=== PATIENT | female | born 1985 | race Caucasian/White ===

== ENCOUNTER 2017-10-03 08:00 | Inpatient (IN) | payer OTHER ==
[2017-10-03] MEDS ORDERED: LIDOCAINE 1% 2 ML INJ ONE (09:52)
[2017-10-03] MEDS ORDERED: ceFAZolin 2 GM/DEXTROSE 100 ML IV ONE (14:14)
[2017-10-03] MEDS ORDERED: LR 500 ML IV ONE (14:14)
--- NOTE | 2017-10-03 14:14 | PDGENHP ---
History and Physical - Chief Complaint PROM, H/o prior section - History of Present Illness 32 yo at 39w0d today by BHAVANI of 10/10/17 - presented to triage this AM with N/V, new mucousy blood-tinged discharge and diarrhea, all new this AM. On admission no concern about SROM, but did have her water break during her triage evaluation. Amnisure positive. H/o prior section, planned repeat was scheduled for this coming Friday with LJ. H/o Rh neg and anxiety/OCD. GBS was negative. History Information - Allergies/Home Medication List Allergies/Adverse Reactions: poison rema extract Allergy (Verified 01/19/15 18:35) venom-honey bee [bee venom (honey bee)] Allergy (Verified 01/19/15 18:35) Home Medications: Folic Acid 1 tab PO 01/19/15 [Last Taken 01/19/15] Vit27&Calcium/Iron/FA [] 1 tab PO DAILY 01/19/15 [Last Taken ] I have personally reviewed and updated: family history, medical history, social history, surgical history Past Medical History: Anxiety, OCD - Surgical History Additional surgical history: H/o one prior - Social History Smoking Status: Never smoked Review of Systems Review of Systems: ROS: 10pt was reviewed & negative except for what was stated in HPI & below Physical Exam Physical Exam: Constitutional: no apparent distress Lab Data & Imaging Review Membrane Rupture POSITIVE (NEGATIVE) H 10/03/17 13:46 Imaging Review: Reviewed FHR Tracing: Baseline 135bpm Moderate variability Accels present Rare decels concerning for late decelerations, with long periods of very reassuring tracing between Assessment & Plan Assessment: 32 yo at 39w0d here with PROM, h/o section, desires repeat. Will proceed to OR. Weight-based Ancef. Routine preop orders otherwise. SAIMA
[2017-10-03] MEDS ORDERED: CITRIC ACID/SODIUM CITRATE 30 ML UDCUP PO ONE (14:19)
[2017-10-03] MEDS ORDERED: ceFAZolin 2 GM/SWFI 2 GM/20 ML SYR IVP ONE (14:30)
[2017-10-03] MEDS ORDERED: LR 1,000 ML IV SCH (14:30)
[2017-10-03] MEDS ORDERED: LIDOCAINE 1% 300 MG/30 ML SDV ONE (14:48)
[2017-10-03] MEDS ORDERED: MISOPROSTOL 200 MCG TAB ONE (14:50)
[2017-10-03] MEDS ORDERED: OXYTOCIN 10 UNIT/ML VIAL ONE (14:50)
[2017-10-03] MEDS ORDERED: AMMONIA AROMATIC 1 EACH AMP IH ONE (14:50)
[2017-10-03] MEDS ORDERED: TERBUTALINE SULFATE 1 MG/ML VIAL ONE (14:50)
[2017-10-03] MEDS ORDERED: morphINE PF 5 MG/10 ML INJ ONE (14:53)
[2017-10-03] MEDS ORDERED: fentaNYL 100 MCG/2 ML INJ ONE (14:53)
[2017-10-03] MEDS ORDERED: DEXAMETHASONE 4 MG/ML VIAL ONE ×2 (15:33→15:46)
[2017-10-03] MEDS ORDERED: OXYTOCIN 100 UNITS/10 ML VIAL ONE (15:33)
[2017-10-03] MEDS ORDERED: ONDANSETRON 4 MG/2 ML VIAL ONE ×2 (15:46)
[2017-10-03] MEDS ORDERED: PHENYLEPHRINE HCL 100 MCG/ML SYR ONE (15:46)
--- NOTE | 2017-10-03 16:36 | POSTOPPROG ---
Post Op Note Date of Operation: 10/03/17 Surgeon: Cristobal Crum Management Department Chair: Gudelia Humphrey RN Anesthesiologist: Richard Dorantes MD Anesthesia: Spinal Pre-op Diagnosis: PROM, H/o prior Post-op Diagnosis: Same Procedure: Repeat low transverse section, unscheduled Findings: Little to no scar tissue at all, Normal uterus, normal bilat tubes ovaries Inf/Abcess present in the surg proc area at time of surgery?: No EBL: 700cc Total fluids administered: 2200cc Complications: None Specimen(s): Cord blood gasses sent, placenta not sent to pathology.
[2017-10-03] MEDS ORDERED: ACETAMINOPHEN 325 MG TAB PO PRN (16:42)
[2017-10-03] MEDS ORDERED: PROMETHAZINE HCL 25 MG/ML INJ IVP PRN (16:42)
[2017-10-03] MEDS ORDERED: SIMETHICONE 80 MG TAB CHEW PO PRN (16:42)
--- NOTE | 2017-10-03 16:42 | SUROPNOTE ---
ESME Operative Report - Surgery Date of Operation: 10/03/17 Surgeon: Cristobal Crum Senior Insight Manager: Gudelia Humphrey RN Anesthesiologist: Richard Dorantes MD Anesthesia: Spinal Pre-op Diagnosis: PROM, H/o prior Post-op Diagnosis: Same Procedure: Repeat low transverse section, unscheduled Findings: Little to no scar tissue at all, Normal uterus, normal bilat tubes ovaries Inf/Abcess present in the surg proc area at time of surgery?: No EBL: 700cc Total fluids administered: 2200cc Complications: None Specimen(s): Cord blood gasses sent, placenta not sent to pathology Technique: The patient was taken to the OR where spinal was placed and anesthesia found to be adequate. The patient was then positioned supine with a leftward tilt and a time-out was performed. She was given weight-based antibiotics prior to skin incision. The abdomen was prepped and draped in normal sterile fashion. A Pfannenstiel skin incision was made with the scalpel and carried down to the fascia. Her prior transverse scar was excised prior to that dissection. The fascia was incised in the midline and the incision extended bilaterally sharply with scissors. The fascia was dissected off of the underlying rectus muscles superiorly and inferiorly also sharply using scissors. The rectus were in the midline and the peritoneum identified and entered bluntly without issue. Minimal adhesions encountered as described in findings. The peritoneal incision was extended and the bladder blade was then placed. The vesicouterine junction was identified and a bladder flap not created. A transverse incision was made with the scalpel in the lower uterine segment and extended with cephalad and caudad traction on the incision edges. The head was encountered and easily elevated out of the pelvis and delivered atraumatically, followed by the shoulders and body. The nose and mouth were bulb suctioned. We did wait for 60 seconds before clamping and cutting the cord and then the infant was handed to pediatric staff. Cord blood gases were sent and the placenta was not sent to pathology. The uterus was then exteriorized and carefully wiped of all debris. The uterus was closed in two layers - the first layer was running with 180 0-vloc and the second a vertical imbricating layer using 0-vicryl. The gutters were cleared of all clots. The uterine incision was re-inspected and found to be hemostatic after placement of additional figure of eight sutures of 3-0 vicryl. The uterus was then returned to the abdomen. The fascia was elevated and the rectus muscles and subcutaneous tissues were found to be hemostatic. The fascia was closed with a running 0-Vicryl - single suture. The subcutaneous tissues were irrigated and hemostasis obtained. The subcutaneous space was closed with interrupted sutures of 2-0 vicryl. The skin was closed with 4-0 vloc undyed and then covered with Medipore dressing. The patient tolerated the procedure and was taken to recovery in stable condition. Lap, needle, sponge, and instrument count were announced as correct times two. I was present and scrubbed for the entire case.
--- NOTE | 2017-10-03 17:03 | PDMN ---
Medical Necessity Medical necessity: C/M review: Patient meets INPT criteria under MCG S-350 delivery: viable male .
[2017-10-03] MEDS ORDERED: PHENYLEPHRINE HCL 100 MCG/ML SYR IVP PRN (18:15)
[2017-10-03] MEDS ORDERED: NALOXONE HCL 0.4 MG/ML INJ IVP PRN (18:15)
--- NOTE | 2017-10-03 18:19 | POSTANESTH ---
Post Anesthetic Evaluation Cardiovascular Status: Normal, Stable, Similar to Pre-Op Cond Respiratory Status: Normal, Stable, Similar to Pre-op Cond. Level of Consciousness/Mental Status: Can Participate in Eval, Alert and Oriented Pain Control: Adequate, Prn Tx Ordered Nausea/Vomiting Control: Adequate, Prn Tx Ordered Complications Possibly Related to Anesthesia: None Noted
[2017-10-03 18:20] LABS: PLATELET COUNT 214 10^3/uL (150-400)
--- NOTE | 2017-10-03 18:22 | PREANESOB ---
Obstetric Pre-Anesthesia Info - General Info Proposed Procedure: Repeat C Section. : 2 Para: 1 BHAVANI: 10/08/17 Gestational Age: 39 week(s) and 2 day(s) - Info Status: Full Term Monitors: External FHR Baseline (bpm): 130 FHR Pattern: Reassuring - Labor Status Section History: Repeat Indications for Current Section: Elective/Repeat (SROM.) Labor Epidural: No Anesthesia ROS: Prior epidural for C Section. Allergies/Adverse Reactions: Allergy/AdvReac Type Severity Reaction Status Date / Time poison rema extract Allergy Verified 01/19/15 18:35 venom-honey bee Allergy Verified 01/19/15 18:35 [bee venom (honey bee)] Home Medications: Medication Instructions Recorded Folic Acid 1 tab PO 01/19/15 Vit27&Calcium/Iron/FA 1 tab PO DAILY 01/19/15 [] Hydrocodone/APAP 5/325 [[place] 1 - 2 tab PO Q4 PRN #30 tab 01/24/15 5/325 (*)] Ibuprofen [Motrin (*)] 600 mg PO Q6 PRN #30 tab 01/24/15 Iron Polysacch/Iron Heme Polyp 28 mg PO DAILY #30 tab 01/24/15 [Bifera] Visit Medications: Generic Name Dose Route Start Last Admin Trade Name Freq PRN Reason Stop Dose Admin Acetaminophen 325 - 650 mg 10/03/17 16:42 Tylenol PO 04/01/18 16:41 Q3HRS PRN Pain, Mild Diphenhydramine HCl 25 - 50 mg 10/03/17 18:15 Benadryl Injection IVP 10/04/17 18:14 Q6HRS PRN Itching Docusate Sodium 100 mg 10/03/17 21:00 Colace PO 04/01/18 20:59 BID TUNG Lactated Ringer's 1,000 mls @ 125 mls/hr 10/03/17 14:30 Lr IV 10/04/17 14:29 CONT TUNG Ibuprofen 600 mg 10/04/17 18:00 Motrin PO 04/02/18 17:59 Q6HRS PRN Inflammation Ketorolac Tromethamine 30 mg 10/03/17 18:00 Toradol IVP 10/04/17 12:01 Q6HRS TUNG Naloxone HCl 0.4 mg 10/03/17 18:15 Narcan IVP 10/04/17 18:17 PRN PRN respiratory depression Ondansetron HCl 4 mg 10/03/17 18:15 Zofran IVP 10/04/17 18:14 Q4HRS PRN Nausea/Vomiting, Can't Take PO Oxycodone/Acetaminophen 1 - 2 tab 10/03/17 16:42 Percocet 5/325 PO 10/13/17 16:41 Q4HRS PRN Pain, Severe Able to Take PO Phenylephrine HCl 100 mcg 10/03/17 18:15 Neosynephrine IVP 10/03/17 19:16 Q1M PRN Hypotension Promethazine HCl 25 mg 10/03/17 16:42 Phenergan IVP 04/01/18 16:41 Q6HRS PRN Nausea/Vomiting, Use 1st Simethicone 80 mg 10/03/17 16:42 Mylicon PO 04/01/18 16:41 .TIDMEALS AND HS PRN Gas Discontinued Medications Generic Name Dose Route Start Last Admin Trade Name Freq PRN Reason Stop Dose Admin Ammonia (Aromatic Spirit) Confirm 10/03/17 14:50 Ammonia Aromatic Administered 10/03/17 14:51 Dose 1 each IH .STK-MED ONE Citric Acid/Sodium Citrate 30 ml 10/03/17 14:19 10/03/17 14:47 Bicitra PO 10/03/17 14:20 30 ml ONCALL ONE Administration Dexamethasone Confirm 10/03/17 15:33 Decadron Injection Administered 10/03/17 15:34 Dose 4 mg .ROUTE .STK-MED ONE Dexamethasone Confirm 10/03/17 15:46 Decadron Injection Administered 10/03/17 15:47 Dose 4 mg .ROUTE .STK-MED ONE Fentanyl Confirm 10/03/17 14:53 Sublimaze Administered 10/03/17 14:54 Dose 100 mcg .ROUTE .STK-MED ONE Lactated Ringer's 500 mls @ 0 mls/hr 10/03/17 14:14 Lr IV 10/03/17 14:15 ONCE ONE As Directed Cefazolin Sodium 2 gm in 20 mls @ 200 mls/hr 10/03/17 14:30 10/03/17 14:30 Cefazolin Syringe IVP 10/03/17 14:35 20 mls ONCALL ONE Administration Lidocaine HCl Confirm 10/03/17 09:52 Lidocaine Hcl 1% Administered 10/03/17 09:53 Dose 2 ml .ROUTE .STK-MED ONE Lidocaine HCl Confirm 10/03/17 14:48 Lidocaine Hcl 1% Administered 10/03/17 14:49 Dose 300 mg .ROUTE .STK-MED ONE Misoprostol Confirm 10/03/17 14:50 Cytotec Administered 10/03/17 14:51 Dose 1,000 mcg .ROUTE .STK-MED ONE Morphine Sulfate Confirm 10/03/17 14:53 Morphine Pf 5 Mg/10 Ml Administered 10/03/17 14:54 Dose 5 mg .ROUTE .STK-MED ONE Ondansetron HCl Confirm 10/03/17 15:46 Zofran Administered 10/03/17 15:47 Dose 4 mg .ROUTE .STK-MED ONE Ondansetron HCl Confirm 10/03/17 15:46 Zofran Administered 10/03/17 15:47 Dose 4 mg .ROUTE .STK-MED ONE Oxytocin Confirm 10/03/17 14:50 Pitocin Administered 10/03/17 14:51 Dose 40 unit .ROUTE .STK-MED ONE Oxytocin Confirm 10/03/17 15:33 Pitocin Administered 10/03/17 15:34 Dose 100 units .ROUTE .STK-MED ONE Phenylephrine HCl Confirm 10/03/17 15:46 Neosynephrine Administered 10/03/17 15:47 Dose 1,000 mcg .ROUTE .STK-MED ONE Terbutaline Sulfate Confirm 10/03/17 14:50 Brethine Administered 10/03/17 14:51 Dose 1 mg .ROUTE .STK-MED ONE - Anesthesia History Response to Local Anesthetics: Normal Anesthesia & Operative History: No Prior Problems Family Anesthesia History: Negative - Social History Substance Use/Abuse: Denies - Vital Signs Latest Vital Signs (Nursing): Temp Pulse Resp BP Pulse Ox 36.8 C 78 18 119/77 99 10/03/17 16:44 10/03/17 16:44 10/03/17 16:44 10/03/17 16:44 10/03/17 16:40 Blood Pressure: 130/83 Heart Rate: 81 Height/Weight (Nursing): Height 167.64 cm Weight 105.233 kg - Focused Exam Neck exam: FROM Mallampati Score: Class 2 Mouth exam: normal dental/mouth exam Pulmonary: no respiratory distress Cardiovascular: regular rate and rhythym Labs: Patient ABO/Rh A NEGATIVE 10/03/17 10:30 - Plan Anesthetic Plan: SAB Consent Signed and on Chart: Yes Patient/Guardian Understands and Agrees to Plan: Yes Urgent/Emergent Case: Saadia hdz completed preop but documented later for safe timely pt care
[2017-10-03] MEDS: ONDANSETRON 4 MG/2 ML VIAL IVP PRN (19:43)
[2017-10-03] MEDS: KETOROLAC 30 MG/1 ML SDV IVP SCH (19:43)
[2017-10-03] MEDS: DOCUSATE SODIUM 100 MG CAP PO SCH (19:44)
[2017-10-04] MEDS: KETOROLAC 30 MG/1 ML SDV IVP SCH ×3 (00:25→11:32)
[2017-10-04] MEDS: ONDANSETRON 4 MG/2 ML VIAL IVP PRN (00:25)
--- NOTE | 2017-10-04 09:21 | OBPP ---
Progress Note Assessment/Plan: Assessment:32 POD#1 s/p repeat C/S, doing well. Good urine output. Plan: Encourage ambulation, dc urinary catheter, obtain Hct off IV with removal later today, as pt declining any further attempts now. 10/04/17 09:34 Subjective/ Course: 10/04/17 09:22 Pt doing well, though fatigued with minimal sleep. Frustrated as unable to get hct drawn successfully despite numerous attempts. going well. [place] reg diet this morning without nausea. Urinary catheter still in place. Objective: urine output 1250 in 12 hours overnight 10/03/17 17:51 Patient ABO/Rh A NEGATIVE 10/03/17 17:51 Temp Pulse Resp BP Pulse Ox 36.6 C 74 17 100/61 94 10/04/17 08:00 10/04/17 08:00 10/04/17 08:00 10/04/17 08:00 10/04/17 08:00 gen - pleasant, NAD, though appears fatigued CV - RRR chest - CTAB abd - + BS, fundus firm at u-2 ext - SCDs in place, no calf tenderness, trace edema Uterine Position/Fundal Height: Umbilicus -2 Uterine Tone: Firm
[2017-10-04] MEDS: OXYCODONE/APAP 5/325 TAB PO PRN ×3 (17:06→21:26)
[2017-10-04] MEDS: DOCUSATE SODIUM 100 MG CAP PO SCH (21:20)
[2017-10-05] MEDS: OXYCODONE/APAP 5/325 TAB PO PRN ×4 (03:17→19:54)
[2017-10-05] MEDS: DOCUSATE SODIUM 100 MG CAP PO SCH ×2 (09:09→19:54)
[2017-10-05] MEDS: IBUPROFEN 600 MG TAB PO PRN ×2 (09:10→17:34)
[2017-10-05 09:33] VITALS: RESP 16
--- NOTE | 2017-10-05 15:21 | OBPP ---
Progress Note Assessment/Plan: Assessment: POD2 s/p unscheduled RLTCS - presented at 39 wks with PROM, planned repeat section. Routine cares, no acute issues. Likely home tomorrow vs Friday. HH not yet drawn - will add for tomorrow AM. Incision CDI, looks good. Mood good thus far, pt suffers with anxiety/OCD, JM Subjective/ Course: 10/04/17 09:22 Pt doing well, though fatigued with minimal sleep. Frustrated as unable to get hct drawn successfully despite numerous attempts. going well. [place] reg diet this morning without nausea. Urinary catheter still in place. 10/05/17 15:19 Feeling pretty good - baby boy just got circumcised. Pain well controlled, tolerating diet. Objective: 10/03/17 17:51 Patient ABO/Rh A NEGATIVE 10/03/17 17:51 Temp Pulse Resp BP Pulse Ox 36.7 C 73 16 99/69 L 96 10/05/17 09:24 10/05/17 09:24 10/05/17 09:24 10/05/17 09:24 10/05/17 09:24 Uterine Position/Fundal Height: At Umbilicus Uterine Tone: Firm Physical Exam - Physical Exam General Appearance: alert, no apparent distress Abdomen: non-tender, soft, other (Incision CDI, sutured, no s/sx of infx)
[2017-10-06] MEDS: IBUPROFEN 600 MG TAB PO PRN ×3 (00:24→11:47)
[2017-10-06] MEDS: OXYCODONE/APAP 5/325 TAB PO PRN ×3 (00:25→11:46)
[2017-10-06 09:49] VITALS: BP 128/83; PULSE 79; TEMP 97.5; O2SAT 94
--- NOTE | 2017-10-06 10:24 | OBPP ---
Progress Note Assessment/Plan: Assessment: 1) s/p RCS- unplanned, PROM POD #3 - pt is stable 2) Anemia - pt is asymptomatic 3) Anxiety/OCD - pt is stable Plan: Plan for d/c home today Instructions reviewed with pt Rx given for Motrin and Percocet Pelvic rest Cont PNV, iron and colace RTC in 2,4 and 6 weeks for pp visit 10/06/17 10:21 Subjective/ Course: 10/04/17 09:22 Pt doing well, though fatigued with minimal sleep. Frustrated as unable to get hct drawn successfully despite numerous attempts. going well. [place] reg diet this morning without nausea. Urinary catheter still in place. 10/05/17 15:19 Feeling pretty good - baby boy just got circumcised. Pain well controlled, tolerating diet. 10/06/17 10:22 Pt seen and examined. Doing well, pain is well controlled. She has some stomach pains, no BM yet. Pt is OOB, teofilo regular diet, voiding and passing flatus. Mod lochia. Denies any f/c/n/v/CP or SOB. BF well, without difficulty. Objective: 10/03/17 17:51 Patient ABO/Rh A NEGATIVE 10/03/17 17:51 Temp Pulse Resp BP Pulse Ox 36.4 C 79 16 128/83 H 94 10/06/17 09:48 10/06/17 09:48 10/06/17 09:48 10/06/17 09:48 10/06/17 09:48 Uterine Position/Fundal Height: Umbilicus -1 Uterine Tone: Firm Physical Exam - Physical Exam Respiratory: lungs clear, normal breath sounds Cardiac/Chest: regular rate, rhythm Abdomen: normal bowel sounds, non-tender (appropriate tenderness), soft, flatus (+), incision (C/D/I) Extremities: non-tender, normal inspection Skin: normal color, warm/dry Neuro/Psych: alert, normal mood/affect, oriented x 3
--- NOTE | 2017-10-06 10:25 | OBGCSDC ---
General Delivery Information - General Info : 2 Para: 1 Abortions: 0 L&D Analgesia/Anesthesia Type: Spinal Admission Date: 10/03/17 Labs: Patient ABO/Rh A NEGATIVE 10/03/17 17:51 Hct 37.3 % (38.0-47.0) L 10/03/17 17:51 - Hospital Course : 10/04/17 09:22 Pt doing well, though fatigued with minimal sleep. Frustrated as unable to get hct drawn successfully despite numerous attempts. going well. Te[place] reg diet this morning without nausea. Urinary catheter still in place. 10/05/17 15:19 Feeling pretty good - baby boy just got circumcised. Pain well controlled, tolerating diet. 10/06/17 10:22 Pt seen and examined. Doing well, pain is well controlled. She has some stomach pains, no BM yet. Pt is OOB, teofilo regular diet, voiding and passing flatus. Mod lochia. Denies any f/c/n/v/CP or SOB. BF well, without difficulty. - Delivery Providers Surgeon: Cristobal Crum - Delivery Indications for Current Section: Elective/Repeat (SROM.) Data BHAVANI: 10/08/17 Gestational Age: 39 week(s) and 5 day(s) [place] Delivery Date: 10/03/17 Delivery Time: 15:35 Sex of Infant: Male [place] Weight (gm): 3758 kg Score (1 Min): 8 Score (5 Min): 9 Discharge Information - Discharge Information Condition: Good Instruction/Follow Up: Two Weeks, Four Weeks, Six Weeks
[2017-10-06] MEDS ORDERED: LACTULOSE 20 GM/30 ML UDCUP PO PRN (10:30)
[2017-10-06] MEDS ORDERED: MAGNESIUM HYDROXIDE 30 ML UDCUP PO PRN (10:30)
[2017-10-06] MEDS ORDERED: POLYETHYLENE GLYCOL 3350 17 GM PKT PO PRN (10:30)
[2017-10-06] MEDS ORDERED: BISACODYL 10 MG SUPP PR PRN (10:30)
[2017-10-06] MEDS ORDERED: SENNOSIDES/DOCUSATE SODIUM TAB PO SCH (11:45)
[2017-10-06] MEDS: DOCUSATE SODIUM 100 MG CAP PO SCH (12:41)
== END 2017-10-06 12:25 | disposition home or self-care (01) | DRG 766 ==
LOC: OBSVTOIN 08:00 → FLD 08:00 → FOB 18:48
PROVIDERS: ADMIT Obstetrics & Gynecology; ATTEND Obstetrics & Gynecology
PROC: 10D00Z1 Extraction of Products of Conception, Low, Open Approach (ICD-10-PCS; principal; 2017-10-03)
DX: O34.211 Maternal care for low transverse scar from previous cesarean delivery (principal); O42.92 Full-term premature rupture of membranes, unspecified as to length of time between rupture and onset of labor; O99.03 Anemia complicating the puerperium; O99.344 Other mental disorders complicating childbirth; F42.9 Obsessive-compulsive disorder, unspecified; Z3A.39 39 weeks gestation of pregnancy; Z37.0 Single live birth
CPT/HCPCS: J0690; J1100; J1885; J2274; J2370; J2405; J2590; J3010; J3105